=== PATIENT | female | born 1970 | race Caucasian/White ===

== ENCOUNTER 2023-11-01 11:11 | Inpatient (IN) | payer OTHER, SELFPAY ==
[2023-11-01] VITALS (12 sets, daily range): BP systolic 99–138; BP diastolic 73–94; BMI 32.1; BMI 30.6
--- NOTE | 2023-11-01 05:38 | ED.GENMED ---
History of Present Illness
<DO Dudley Hoyt Last Filed: 11/04/23 13:19>
General
Chief Complaint: Extremity Pain (non-traumatic)
Source: patient
Time Seen by Provider: 11/01/23 05:26
Travel History
Have you had any contact with someone who has COVID-19?: No
Do you have any symptoms of coronavirus? Fever > 100 degrees, chills, cough, shortness of breath, sore throat, loss of taste or smell, muscle aches, or headache?: No
History of Present Illness
History of Present Illness:
52-year-old female presents to the emergency room complaining of pain in her right calf. This pain began about 4 days ago. It was initially mild but has become more severe. This evening the pain was preventing her from sleeping because it was a
significant throbbing. In addition the patient noticed some shortness of breath with exertion yesterday. Today she becomes significantly short of breath with minimal exertion. Patient has a history of factor V Leiden deficiency. She has had a
DVT with PEs in the past. At that time she took anticoagulation for 6 months and then stopped. She does not currently take any form of anticoagulation.
Past History
<Jose Enrique Larsen DO - Last Filed: 11/04/23 13:19>
Past History
ED Past Medical History: None
ED Past Surgical History: None
Phy Exam
<Jose Enrique Larsen DO - Last Filed: 11/04/23 13:19>
Physical Exam
Physical Exam:
General: Awake, Alert, Oriented X3. Comfortable at rest but after standing up to change into a gown she was significantly dyspneic
Vitals: Tachycardic
Head: Atraumatic
Eyes: Pupils equal, EOMI
Throat: Airway intact, no exudates
Neck: Trachea midline
Lungs: Clear and equal b/l
Heart: Regular rate, no murmurs
Abd: Soft, Nontender, No pulsatile mass
Neuro: Nonfocal
Skin: Warm, dry, no rash
Extremities: Swelling of right calf noted, pulses are intact, cap refill is intact
Course
<Jose Enrique Larsen, DO - Last Filed: 11/04/23 13:19>
Orders/Labs/Results
Orders:
Orders
11/01/23 05:29
EKG [Electrocardiogram (*1)] Urgent
Reason for Study: Shortness of Breath
EKG- Treatment ONCE
11/01/23 05:32
US Periph Venous LOWER Ext RT Urgent
Comment:
Reason For Exam: swelling, pain, hx of factor v
11/01/23 05:45
Complete Blood Count/With Diff Urgent
Comprehensive Metabolic Panel Urgent
PTT Urgent
Prothrombin Time Urgent
Troponin I Urgent
11/01/23 06:18
CT Chest Pe Study Urgent
Comment:
Reason For Exam: dvt, sob, tachycardic
11/01/23 06:[address] Non Medication Order As Directed
Physician Order: PTT 6 hours after initial start of Heparin infusion
Above order entered?: Yes
11/01/23 06:42
Heparin [id number] Units/250 ml 25,000 units in 250 ml .ROUTE .STK-MED
11/01/23 07:00
Flush (0.9% Sodium Chloride) [Flush (Nss)] See Dose Instructions IV PER PROTOCOL
Heparin 7,200 units IV NOW STA
Heparin 97629 Units/250 ml 25,000 units in 250 ml IV PER PROTOCOL
Weight to be used for heparin protocol in kilograms (kg):: 90.3
Protocol:: DVT/PE
PTT Goal Range to be used:: PTT 73 to 111 seconds
Order type:: Initial
INITIAL Infusion Dose (UNITS/KG/hr) & then follow protocol:: 18 units/kg/hr
Infusion Dose in UNITS/hr & then follow protocol (UNITS/hr):: 1,600
INFUSION RATE in mL/hr & then follow protocol (mL/hr):: 16
For DVT/PE algorithm, re-bolus for low PTT?: Yes
PTT less than or equal to 64 seconds:: Re-bolus 80 units/kg (max 10,000units). Increase by 400 units/hr
(+ 4mL/hr)
PTT 64.1 to 72.9 seconds:: Re-bolus 40 units/kg (max 5,000 units). Increase by 200 units/hr
(+ 2mL/hr)
PTT 73 to 111 seconds:: Target Range. No change in rate.
PTT 111.1 to 130.9 seconds:: Decrease rate by 200 units/hr (- 2 mL/hr)
PTT 131 to 199.9 seconds:: HOLD for 1 hr. Then decrease by 300 units/hr (- 3mL/hr)
PTT greater than or equal to 200 seconds:: HOLD for 2 hrs & Notify Provider. Then decrease by 400 units/hr
(- 4mL/hr)
Lab follow-up:: Each change, PTT q6h until 2 consecutive are therapeutic. Then
PTT daily.
11/01/23 07:03
Heparin 7,200 units IV PRN PRN
11/01/23 07:04
Heparin 3,600 units IV PRN PRN
11/01/23 07:34
HYDROmorphone [Dilaudid] 0.5 mg IV NOW STA
11/01/23 09:42
Admit/Transfer Patient As Directed
Co-Sign Provider:
Level of Care: Inpatient admission
Assign to:: IMU- Intermediate Care
Physician / Group: [facility]
Diagnosis: B/L PEs
Reason for Hospitalization: Occlusive thrombus involving the right popliteal and peroneal veins.
Expected length of stay greater than two midnights?: Yes
ELOS- Estimated Length of Stay in days: 3
I certify the patient meets the requirements for IP care: Yes
11/01/23 09:43
Code Status As Directed
Resuscitation Status: Full Code
11/01/23 Lunch
Regular
At Your Request: Full Participation
11/01/23 11:15
D-Dimer Urgent
NT-proBNP Urgent
11/01/23 12:47
PTT Urgent
11/01/23 12:50
Morphine Sulfate 2 mg IV Q4HPRN PRN
11/01/23 13:21
0.9% Sodium Chloride 1000 ml [Nss] 1,000 ml IV 75 mls/hr
Acetaminophen [Tylenol] 650 mg PO Q4HPRN PRN
Polyethylene Glycol Powder [Miralax] 17 grams PO DAILY
11/01/23 13:21
PULMONARY CONSULT Routine
Consulting Provider: Aleks Carrera
Was physician already notified: Yes
Reason for consult: acute PEs
Heparin Protocol- PTT Orders As Directed
PTT per Heparin protocol: -Obtain CBC and baseline PTT - if not already collected.
-Obtain PTT 6 hours from start of infusion. Then, every 6 hours until 2 consecutive
PTT's are therapeutic. Then, PTT Daily.
-With each rate change, obtain PTT every 6 hours until 2 consecutive PTT's are
therapeutic. Then, PTT Daily.
Activity As Directed
Activity Level: With Assistance
Bladder Scan As Directed
Follow Bladder Retention/Intermittent Cath Algorithm?: Yes
Frequency: Per Retention Algorithm
Comment: as per intermittent urinary catheter algorithm
Bladder Scan As Directed
Follow Bladder Retention/Intermittent Cath Algorithm?: Yes
PRN if no void in __ hours: 6
Frequency: Per Retention Algorithm
If Bladder Scan Result >: 400
then:: Straight cath
Intake/ Output As Directed
Frequency: Per unit guidelines
Notify MD As Directed
Notify physician if: PTT is greater than or equal to 200.
Straight Cath As Directed
Frequency: Per Retention Algorithm
Additional Instructions: as per intermittent urinary catheter algorithm
Straight Cath As Directed
Frequency: Per Retention Algorithm
Additional Instructions: straight cath as needed per acute urinary retention algorithm for 24 hrs
Additional Instructions: for bladder scan greater than 400 mL
Vital Signs As Directed
Frequency: Per unit guidelines
11/01/23 16:00
Valacyclovir HCl [Valtrex] 1,000 mg PO TID
11/01/23 22:00
Pramipexole [Mirapex] 0.75 mg PO HS
Abnormal Lab Results
11/01/23
05:45
Absolute Neuts (auto) 6.6 H 10^3/uL
(1.4-6.5)
Absolute Monos (auto) 0.7 H 10^3/uL
(0.1-0.6)
Lymphocytes % 18.9 L %
(20.5-51.1)
BUN 20 H mg/dl
(7-17)
Glucose 106 H mg/dl
(70-99)
11/01/23 05:45
11/01/23 05:45
Vital Signs
Initial and Last Documented VS:
Initial Vital Signs
Temp Pulse Resp Pulse Ox
98.3 F 124 24 95
11/01/23 05:18 11/01/23 05:18 11/01/23 05:18 11/01/23 05:18
Last Documented Vital Signs
Temp Pulse Resp BP Pulse Ox
97.7 F 102 23 132/94 93
11/04/23 11:25 11/04/23 12:00 11/04/23 12:00 11/04/23 12:00 11/04/23 12:00
<Poncho Clifton, DO - Last Filed: 11/01/23 15:14>
Orders/Labs/Results
Orders:
Orders
11/01/23 05:29
EKG [Electrocardiogram (*1)] Urgent
Reason for Study: Shortness of Breath
EKG- Treatment ONCE
11/01/23 05:32
US Periph Venous LOWER Ext RT Urgent
Comment:
Reason For Exam: swelling, pain, hx of factor v
11/01/23 05:45
Complete Blood Count/With Diff Urgent
Comprehensive Metabolic Panel Urgent
PTT Urgent
Prothrombin Time Urgent
Troponin I Urgent
11/01/23 06:18
CT Chest Pe Study Urgent
Comment:
Reason For Exam: dvt, sob, tachycardic
11/01/23 06:[address] Non Medication Order As Directed
Physician Order: PTT 6 hours after initial start of Heparin infusion
Above order entered?: Yes
11/01/23 06:42
Heparin [id number] Units/250 ml 25,000 units in 250 ml .ROUTE .STK-MED
11/01/23 07:00
Flush (0.9% Sodium Chloride) [Flush (Nss)] See Dose Instructions IV PER PROTOCOL
Heparin 7,200 units IV NOW STA
Heparin [id number] Units/250 ml 25,000 units in 250 ml IV PER PROTOCOL
Weight to be used for heparin protocol in kilograms (kg):: 90.3
Protocol:: DVT/PE
PTT Goal Range to be used:: PTT 73 to 111 seconds
Order type:: Initial
INITIAL Infusion Dose (UNITS/KG/hr) & then follow protocol:: 18 units/kg/hr
Infusion Dose in UNITS/hr & then follow protocol (UNITS/hr):: 1,600
INFUSION RATE in mL/hr & then follow protocol (mL/hr):: 16
For DVT/PE algorithm, re-bolus for low PTT?: Yes
PTT less than or equal to 64 seconds:: Re-bolus 80 units/kg (max 10,000units). Increase by 400 units/hr
(+ 4mL/hr)
PTT 64.1 to 72.9 seconds:: Re-bolus 40 units/kg (max 5,000 units). Increase by 200 units/hr
(+ 2mL/hr)
PTT 73 to 111 seconds:: Target Range. No change in rate.
PTT 111.1 to 130.9 seconds:: Decrease rate by 200 units/hr (- 2 mL/hr)
PTT 131 to 199.9 seconds:: HOLD for 1 hr. Then decrease by 300 units/hr (- 3mL/hr)
PTT greater than or equal to 200 seconds:: HOLD for 2 hrs & Notify Provider. Then decrease by 400 units/hr
(- 4mL/hr)
Lab follow-up:: Each change, PTT q6h until 2 consecutive are therapeutic. Then
PTT daily.
11/01/23 07:03
Heparin 7,200 units IV PRN PRN
11/01/23 07:04
Heparin 3,600 units IV PRN PRN
11/01/23 07:34
HYDROmorphone [Dilaudid] 0.5 mg IV NOW STA
11/01/23 09:42
Admit/Transfer Patient As Directed
Co-Sign Provider:
Level of Care: Inpatient admission
Assign to:: IMU- Intermediate Care
Physician / Group: [facility]
Diagnosis: B/L PEs
Reason for Hospitalization: Occlusive thrombus involving the right popliteal and peroneal veins.
Expected length of stay greater than two midnights?: Yes
ELOS- Estimated Length of Stay in days: 3
I certify the patient meets the requirements for IP care: Yes
11/01/23 09:43
Code Status As Directed
Resuscitation Status: Full Code
11/01/23 Lunch
Regular
At Your Request: Full Participation
11/01/23 11:15
D-Dimer Urgent
NT-proBNP Urgent
11/01/23 12:47
PTT Urgent
11/01/23 12:50
Morphine Sulfate 2 mg IV Q4HPRN PRN
11/01/23 13:21
0.9% Sodium Chloride 1000 ml [Nss] 1,000 ml IV 75 mls/hr
Acetaminophen [Tylenol] 650 mg PO Q4HPRN PRN
Polyethylene Glycol Powder [Miralax] 17 grams PO DAILY
11/01/23 13:21
PULMONARY CONSULT Routine
Consulting Provider: Aleks Carrera
Was physician already notified: Yes
Reason for consult: acute PEs
Heparin Protocol- PTT Orders As Directed
PTT per Heparin protocol: -Obtain CBC and baseline PTT - if not already collected.
-Obtain PTT 6 hours from start of infusion. Then, every 6 hours until 2 consecutive
PTT's are therapeutic. Then, PTT Daily.
-With each rate change, obtain PTT every 6 hours until 2 consecutive PTT's are
therapeutic. Then, PTT Daily.
Activity As Directed
Activity Level: With Assistance
Bladder Scan As Directed
Follow Bladder Retention/Intermittent Cath Algorithm?: Yes
Frequency: Per Retention Algorithm
Comment: as per intermittent urinary catheter algorithm
Bladder Scan As Directed
Follow Bladder Retention/Intermittent Cath Algorithm?: Yes
PRN if no void in __ hours: 6
Frequency: Per Retention Algorithm
If Bladder Scan Result >: 400
then:: Straight cath
Intake/ Output As Directed
Frequency: Per unit guidelines
Notify MD As Directed
Notify physician if: PTT is greater than or equal to 200.
Straight Cath As Directed
Frequency: Per Retention Algorithm
Additional Instructions: as per intermittent urinary catheter algorithm
Straight Cath As Directed
Frequency: Per Retention Algorithm
Additional Instructions: straight cath as needed per acute urinary retention algorithm for 24 hrs
Additional Instructions: for bladder scan greater than 400 mL
Vital Signs As Directed
Frequency: Per unit guidelines
11/01/23 16:00
Valacyclovir HCl [Valtrex] 1,000 mg PO TID
11/01/23 22:00
Pramipexole [Mirapex] 0.75 mg PO HS
Abnormal Lab Results
11/01/23
05:45
Absolute Neuts (auto) 6.6 H 10^3/uL
(1.4-6.5)
Absolute Monos (auto) 0.7 H 10^3/uL
(0.1-0.6)
Lymphocytes % 18.9 L %
(20.5-51.1)
BUN 20 H mg/dl
(7-17)
Glucose 106 H mg/dl
(70-99)
11/01/23 05:45
11/01/23 05:45
Vital Signs
Initial and Last Documented VS:
Initial Vital Signs
Temp Pulse Resp Pulse Ox
98.3 F 124 24 95
11/01/23 05:18 11/01/23 05:18 11/01/23 05:18 11/01/23 05:18
Last Documented Vital Signs
Temp Pulse Resp BP Pulse Ox
97.7 F 102 23 132/94 93
11/04/23 11:25 11/04/23 12:00 11/04/23 12:00 11/04/23 12:00 11/04/23 12:00
<Jose Enrique John Larsen DO - Last Filed: 11/04/23 13:19>
MDM/Problems Addressed
Differential Diagnosis Includes:
DVT, PE, anemia
MDM/Problems Addressed:
Patient presents with signs and symptoms suggestive of both pulmonary embolism and DVT. Patient has history of a hypercoagulable state. She is not taking anticoagulants at this time. Ultrasound of the right leg shows clot in the popliteal vein
through the peroneal vein. Given the patient's tachycardia and shortness of breath with minimal exertion will obtain a PE study. I am starting heparin in the meantime. Should the PE study be negative we can always discontinue and discharge her on
Eliquis. However my suspicion for PE is high
<Jose Enrique Larsen DO - Last Filed: 11/04/23 13:19>
*Radiology
Radiology exam reviewed: radiology read reviewed
*Pulse Oximetry
Patient hypoxic: no
*EKG
Interpreted by ED Provider?: Yes
Interpretation: abnormal
Heart Rate: 107
Rate: tachycardiac
Rhythm: sinus tachycardia
Interval: normal interval
QRS Pattern: normal QRS
Ischemia: no ischemia
*[employer] Manager Interpretation
Rate: tachycardiac
Interpretation: abnormal
Heart Rate: 107
Rhythm: sinus tachycardia
*Critical Care Note
Total Time (30-74mins, 75-104mins- exclusive of procedures): 35 min
<Poncho Clifton, DO - Last Filed: 11/01/23 15:14>
Update Note
Update Note:
Patient received in signout. On my review of CT it appears that pulmonary emboli. Heparin already ordered. Admit. Await official radiology read
ED Attending Note
<Jose Enrique Larsen DO - Last Filed: 11/04/23 13:19>
-
Portions of this chart may have been created with voice recognition software.� Occasional wrong word or��sound alike� substitutions may have occurred due to the inherent limitations of voice recognition software.
Discharge Plan
Departure
Patient Disposition: Admit
Date of Disposition: 11/01/23
Time of Disposition: 07:12
Admit to: Telemetry
Presentation/result/management discussed w/ accepting MD/DO: Hospitalist
Discharge Problem:
Pulmonary embolism, DVT (deep venous thrombosis)
Interventions
Interventions:
*Risk Screen - Suicide Last Done: 11/01/23 13:43
*General Assessment Last Done: 11/01/23 05:18
*Neglect/Abuse Screening Last Done: 11/01/23 05:18
ED- Fall Risk Assessment Last Done: 11/01/23 13:24
*ED COVID-19 Vaccine History Last Done: 11/01/23 13:43
*Nursing Disposition Last Done: 11/01/23 13:24
ED-Skin Assessment Last Done: 11/01/23 05:57
ED-Peripheral Vascular Assessment Last Done: 11/01/23 06:45
ED- Pulmonary Assessment Last Done: 11/01/23 05:57
ED-Musculoskeletal Assessment Last Done: 11/01/23 05:57
ED- Cardiac Assessment Last Done: 11/01/23 05:57
Discharge Date and Time
Discharge Date/Time: 11/01/23 13:25
[2023-11-01 05:57] LABS: % Basophils 0.6 % (0-2); % Eosinophils 1.1 % (0-6); % Immature Granulocytes 0.3 % (0-0.5); % Lymphocytes 18.9 % (20.5-51.1); % Monocytes 7.7 % (1.7-9.3); % Neutrophils 71.4 % (42.2-75.2); Absolute Basophils 0.1 10^3/uL (0-0.2); Absolute Eosinophils 0.1 10^3/uL (0-0.7); Absolute Lymphocytes 1.8 10^3/uL (1.2-3.4); Absolute Monocytes 0.7 10^3/uL (0.1-0.6); Absolute Neutrophils 6.6 10^3/uL (1.4-6.5); Hematocrit 41.6 % (37.0-47.0); Hemoglobin 14.9 g/dL (12.0-16.0); Mean Corp Hgb Conc. 35.8 g/dL (33.0-37.0); Mean Corpuscular Volume 86.5 fL (81.0-99.0); Mean Platelet Volume 9.9 fL (7.4-10.4); Nucleated Red Blood Cells % 0 %; Platelet Count 167 10^3/uL (130-400); Red Blood Cell Count 4.81 10^6/uL (4.20-5.40); Red Cell Dist. Width 12.7 % (11.5-14.5); White Blood Cell Count 9.3 10^3/uL (4.8-10.8)
[2023-11-01 06:07] LABS: ALT (SGPT) 22 U/L (0-35); AST (SGOT) 26 U/L (14-36); Albumin 4.1 g/dl (3.5-5.0); Alkaline Phosphatase 99 U/L (38-126); Blood Urea Nitrogen 20 mg/dl (7-17); Calcium 9.7 mg/dl (8.4-10.2); Carbon Dioxide 22 mmol/L (22-30); Chloride 103 mmol/L (98-107); Glucose 106 mg/dl (70-99); Sodium 136 mmol/L (135-145); Total Bilirubin 0.8 mg/dl (0.2-1.3); Total Protein 6.9 g/dl (6.3-8.2); eGFR > 60.00
[2023-11-01 06:17] LABS: PT 14.1 Sec (11.4-14.6)
[2023-11-01 06:18] LABS: APTT 30.1 Sec (23.4-35.0); Troponin I < 0.012 ng/ml
[2023-11-01] MEDS: HEPARIN 7200 UNITS IV (07:01)
[2023-11-01] MEDS: HEPARIN 25000 UNITS/250 ML IV (07:02)
[2023-11-01] MEDS: DILAUDID 0.5 MG IV ×4 (08:18→23:35)
--- NOTE | 2023-11-01 09:41 | HPS.HSE ---
Family Physician
-
Family Physician: Abigail Montes De Oca
Chief Complaint
-
Right lower extremity pain
History of Present Illness
52-year-old female with past medical history of factor V Leiden mutation with history of pulmonary embolism in the past (and was taken off anticoagulation) presents with a chief complaint of right lower extremity pain. This started approximately 4
days ago. It became severely worse yesterday and this morning. Yesterday the patient developed shortness of breath which persisted into today. Over the last roughly 1 week she has felt more fatigued. About a week and a half ago the patient saw
her primary care physician for left-sided head pain and was diagnosed with 'shingles without a rash' and was placed on Valtrex. Those symptoms have improved. She denies any syncope, palpitations, nausea, vomiting, diarrhea, chest pain, rash,
dysuria, focal neurological deficits.
Medical History
Past Medical History
Past Medical History: Reports Other (as per HPI)
Past Surgical History: Reports Other (N/A)
Social History
Tobacco: Smoker
Alcohol: None
Drug: None
Family History
Family History: Not pertinent
Allergies / Home Medications
Allergies reflects when Allergies were last updated in [employer].
Home Medications with original date entered in [employer]
Allergy/Medication List:
Allergies
Allergy/AdvReac Type Severity Reaction Status Date / Time
pineapple Allergy Swelling Verified 01/09/23 09:53
NSAIDS (Non-Steroidal AdvReac Told not Verified 01/09/23 09:53
Anti-Inflamma to take
because of
stomach
ulcers and
Factor 5
Leid
Home Medications
diphenhydramine 25 mg-acetaminophen 500 mg tablet (Tylenol PM Extra Strength) 2 tab PO HS 11/01/23
melatonin 10 mg tablet 10 mg PO HS 11/01/23
pramipexole 0.75 mg tablet 0.75 mg PO HS 11/01/23
valacyclovir 1 gram tablet (Valtrex) 1,000 mg PO TID 11/01/23
Review of Systems
-
History Source: Patient
A 12 point ROS was completed and negative except as noted: Yes
Physical Exam
Vital Signs
Vital Signs
Temp Pulse Resp BP Pulse Ox
98.3 F 100 17 120/85 96
11/01/23 05:18 11/01/23 07:00 11/01/23 07:00 11/01/23 07:00 11/01/23 07:00
Physical Exam
General: Other (.)
Laboratory Results
-
11/01/23 05:45
11/01/23 05:45
Laboratory Results
PT 14.1 Sec (11.4-14.6) 11/01/23 05:45
INR 1.10 11/01/23 05:45
APTT 30.1 Sec (23.4-35.0) 11/01/23 05:45
Total Bilirubin 0.8 mg/dl (0.2-1.3) 11/01/23 05:45
AST 26 U/L (14-36) 11/01/23 05:45
ALT 22 U/L (0-35) 11/01/23 05:45
Alkaline Phosphatase 99 U/L (38-126) 11/01/23 05:45
Troponin I < 0.012 ng/ml 11/01/23 05:45
Impression/Plan
-
Gen: NAD, AAOx3.
Eyes: EOMI, PERRLA, no scleral icterus.
Neck: supple.
CV: RRR, +S1/S2, no m/r/g.
Resp: CTAB, no rales, wheezes, or rhonchi.
Abd: +BS, soft, NT, ND
Skin: No rashes.
Neuro: CN 2-12 intact, non-focal.
Psych: Normal mood and affect.
CTA chest: Examination is positive for pulmonary embolism.
There is saddle embolus in the posterior aspect of the bifurcation of the main pulmonary artery, with emboli extending into the main pulmonary arteries bilaterally.
On the right, there is involvement of the proximal aspect of the right upper lobe pulmonary artery. There is also involvement of the superior aspect of the proximal interlobar right pulmonary artery. There does not appear to be significant emboli
within the visualized right middle and lower lobe pulmonary arteries.
On the left, there is involvement of the left upper lobe pulmonary artery and extending into segmental branches. There is also involvement of the lingula and of the left lower lobe segmental branches, although appears to relatively spare the
subsegmental branches inferiorly.
There are no findings to suggest significant right heart strain with no significant deviation of the interventricular septum. The RV/LV ratio is less than 1.
RLE U/S: Occlusive thrombus involving the right popliteal and peroneal veins.
Acute saddle and B/L PEs, acute RLE U/S:
-Patient with factor V Leiden mutation. History of pulmonary embolism in the past but was taken off anticoagulation.
-no evidence of RV strain, troponin negative, patient hemodynamically stable
-Check echocardiogram
-IVFs
-Consult pulmonary
-Continue heparin drip started in the ER
Obesity due to excess calories:
-Encourage weight loss
-Affects all aspects of care
FULL/Heparin gtt
[2023-11-01 11:41] LABS: D-Dimer 1.22 ug/mlFEU (0.00-0.50)
[2023-11-01 11:50] LABS: NT-proBNP < 20.0 pg/ml
[2023-11-01] MEDS: MORPHINE SULFATE 2 MG IV (12:59)
--- NOTE | 2023-11-01 13:50 | CON.PUL ---
Consultation
Consultation Request
Date/Time Consultation Requested: 11-01-23
Date/Time Consultation Performed: 11-01-23
Requesting Provider: Hospitalist
Performing Provider: Dr Carrera
Reason for Consultation: PE/DVT
Medical History
-
Chief Complaint: dyspnea
History of Present Illness:
Mrs Juany Rosales is a 52/W adm 10-31 with reported history of right lower extremity pain and dyspnea since day prior to admission. Both symptoms worsened over time.
Reportedly, she visited PCP for left-sided headache, she was empirically started on Valtrex with improvement of symptoms.
Of note, she has a history of factor V Leiden mutation and history of associated pulmonary embolism for which she was on anticoagulation in the past. First adm
FVL mutation diagnosed in screening test at age mid 30s after her paternal aunt had DVT and proved positive for FVLD
H/o PE for which she was on anticoagulation for 6 m in 2019 (no DVT)
2 cousins with FVL mutation
Smoker: 1 ppd since age 16
Denies precordial or pleuritic CP, no presyncopal event
Past Medical History
Past Medical History: Other (see AP for PMH and PSH)
Social History
Tobacco: Smoker
Alcohol: None
Drug: None
Personal:
Living: With Family
Employment: Employed
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
Family History
Family History: Other (FVL mutation in paternal aunt and two cousins)
Allergies / Home Medications
Allergies
Allergy/AdvReac Type Severity Reaction Status Date / Time
pineapple Allergy Swelling Verified 01/09/23 09:53
NSAIDS (Non-Steroidal AdvReac Told not Verified 01/09/23 09:53
Anti-Inflamma to take
because of
stomach
ulcers and
Factor 5
Leid
Home Medications
�Medication �Instructions �Recorded �Confirmed �Last Taken �Type
diphenhydramine 25 2 tab PO HS 11/01/23 11/01/23 10/31/23 History
mg-acetaminophen 500 mg tablet
(Tylenol PM Extra Strength)
melatonin 10 mg tablet 10 mg PO HS 11/01/23 11/01/23 10/31/23 History
pramipexole 0.75 mg tablet 0.75 mg PO HS 11/01/23 11/01/23 10/31/23 History
valacyclovir 1 gram tablet 1,000 mg PO TID 11/01/23 11/01/23 10/31/23 History
(Valtrex)
Review of Systems
-
History Source: Patient
All other systems: Negative unless noted
Constitutional: Fatigue
Respiratory: Trouble Breathing
Musculoskeletal: Other (RLE pain)
Vitals / Labs / Diagnostic Testing
Vital Signs
Temp Pulse Resp BP Pulse Ox
98.7 F 115 24 99/74 95
11/01/23 13:30 11/01/23 13:03 11/01/23 13:03 11/01/23 13:03 11/01/23 12:15
Lab Data
11/01/23 05:45
11/01/23 05:45
Laboratory Results
11/01/23
05:45
PT 14.1
INR 1.10
APTT 30.1
Diagnostic Testing:
Physical Exam
-
HEENT: Normocephalic, Moist Mucous Membranes and Thrush (n)
Cardiovascular: Regular Rhythm, Murmur (n), Peripheral Edema (n), Calf Tenderness (n) and JVD (n)
Respiratory: Clear and Non-Labored Respirations
GI: Soft, Non Distended and Non Tender
Neurology: Awake, AO x 3 and No Motor Deficits
Skin: Warm
General: Respiratory Distress (n)
Assessment
-
Assessment:
Mrs Juany Rosales is a 52/W adm 10-31 with reported history of right lower extremity pain and dyspnea since day prior to admission. Both symptoms worse over time. Reportedly, she visited PCP for left-sided headache, she was empirically started
on Valtrex with improvement of symptoms. Of note, she has a history of factor V Leiden mutation and history of associated pulmonary embolism for which she was on anticoagulation in the past. First adm
Impression:
VTE:
Saddle PE
RLE calf DVT
Thrombophilia: FVL mutation
Tobacco dependence
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
Factor V Leiden mutation
FVL mutation diagnosed in screening test at age mid 30s after her paternal aunt had DVT and proved positive for FVLD
H/o PE for which she was on anticoagulation for 6 m in 2019 (no DVT)
2 cousins with FVL mutation
Smoker: 1 ppd since age 16
Obesity
Plan:
O2 protocol as needed
Evaluate O2 needs PTD
Acapella valve
Aspiration precautions
CTA chest: saddle and bilateral PE. GGO at RUL anterior(*). Posterior dependent changes
TTE: pending
RLE doppler US: R pop and peroneal DVT
Check LLE doppler for completeness, ordered
BNP low
D-dimer ^
Trop negative
EKG ST
(*)Check COVID test
Full PESI: class II, low risk, 1.7 to 3.5% thirty d mortality
Heparin drip
Benefits and risks of thrombolytics therapy were reviewed with patient
Patient has mild tachycardia and borderline interim hypotension-currently risks of aggressive thrombolytic therapy outweigh [id number] notified of options, reasons for conservative standard of care therapy and is in agreement
Will transition to DOAC in 24 hrs if stable
Bedrest �24 hours
Given second VTE event, will need half-way AC
Used to follow with Hem and Pulm at [facility] and post d/c after first PE event in 2019 (ASUNCION doppler negative for DVT), repeat CTA negative at 6 m gavin, apixaban AC then d/c
Agrees to pulm and local hematology follow up p d/c. BCMA information left in chart
Never colonoscopy but negative cologuard 1 y ago
Negative mammogram mid 2022
Negative PAP 2 y ago
No wt loss, but chronic intermittent NS
Tobacco dependence and Smoking Cessation Counselling provided on 10-31: No current tobacco craving but realizes may eventually feel urge for tobacco as has happened before.
-Motivational interview to address importance of tobacco cessation, building up motivation to quit.
-Diagnosis of tobacco dependence, etiology, natural history and pathophysiology discussed in detail, all questions answered to satisfaction.
-Therapeutic options discussed, benefits and potential side effects of standard regimens discussed, all questions answered to satisfaction.
-NRT to complete total of 3-6 m of therapy. Agrees to start nicotine patch, will start at 21 mg qd for 1-2 m, then 14 mg qd for 1-2 m, then 7 mg qd for 1-2 m and stop (dosing and course to be modified based on response).
-Behavioral interventions in addition to NRT were thoroughly discussed.
-Total smoking cessation counsellin min.
DVT prophylaxis-on full anticoagulation
Early nutrition
Early mobilization
Outpatient pulmonary follow-up
Outpatient appropriate malignancy screening
[2023-11-01 14:02] LABS: APTT > 200 Sec (23.4-35.0)
[2023-11-01] MEDS: MIRALAX PO (14:29)
[2023-11-01] MEDS: NSS 1000 IV (14:30)
[2023-11-01] MEDS: VALTREX 1000 MG PO ×2 (16:49→21:17)
--- NOTE | 2023-11-01 17:33 | PTCARENOTE ---
Arrived to floor from ED on stretcher. Pt ambulated to bed; Pt very HIGUERA with ambulation. Pt reports RLE pain ~ 7/10; SpO2 = 93% on RA; Sinus Tach on monitor with rate ~ 90-110's. Heparin infusing into RAC ~ 16ml/hr; NSS started @ 75/hr.
Oriented to room, call maldonado within reach. Will continue to monitor and assess.
--- NOTE | 2023-11-01 19:45 | PTCARENOTE ---
Pt received from previous RN. Pt AAO, agreeable to care. Pt OOB to bathroom with standby assist. Pt voided moderate amount of clear urine. Pt with dyspnea and tachypnea with ambulation, RR rate 22. Pt resting in bed now, RR rate 15, even and un
labored, satting 93%. lungs coarse at the bases. Pt receiving heparin at 1200 u/hr, 12.0 ml/hr. per protocol. next PTT at 22:00. Please see nursing shift assessment for full head to toe.
--- NOTE | 2023-11-01 20:12 | PTCARENOTE ---
Pt c/o 02/22 right leg pain. care team aware of pain per dayshift RN. This RN administered ordered 0.5mg Q3 PRN Dilaudid for pain. Pt admits to relief of pain after administration, pain 10/22. RR even and unlabored, chest rise and fall noted.
[2023-11-01] MEDS: MIRAPEX 0.75 MG PO (21:17)
[2023-11-01 22:27] LABS: APTT 68.1 Sec (23.4-35.0)
[2023-11-01] MEDS: HEPARIN IV (22:55)
[2023-11-01] MEDS: HEPARIN 3600 UNITS IV (23:16)
[2023-11-02] VITALS (12 sets, daily range): BP systolic 95–130; BP diastolic 69–88; BMI 31.2
[2023-11-02] MEDS: DILAUDID 0.5 MG IV ×5 (03:25→21:08)
[2023-11-02] MEDS: NSS 1000 IV ×2 (03:30→16:39)
--- NOTE | 2023-11-02 03:30 | PTCARENOTE ---
Pt stood and pivoted to bedside commode. Per activity level order, Pt ambulated with assistance. Pt experienced SOB and dyspnea post ambulation, Pt satting 88%. This SOB lasted a few minutes, Pt was able to recover back up to 90%. Per medical
consultation note, which states '02 per protocol' Pt was placed on 2L NC. Pts O2 Sat increased to 94%, with assistance of 02.
[2023-11-02] MEDS: HEPARIN 25000 UNITS/250 ML IV (04:14)
[2023-11-02] MEDS: TYLENOL 650 MG PO ×2 (06:03→23:09)
[2023-11-02 06:20] LABS: COVID-19 Antigen Negative (Negative)
[2023-11-02 06:26] LABS: APTT 157.2 Sec (23.4-35.0)
--- NOTE | 2023-11-02 06:40 | PTCARENOTE ---
PTT 157.2. Heparin placed on hold for 1hr. Then to be restarted and decreased by 3ml/hr, 300u/hr. PTT placed for 6hr after restart, placed for 13:30. per medication titration protocol.
[2023-11-02] MEDS: VALTREX 1000 MG PO ×3 (08:18→21:10)
[2023-11-02] MEDS: NICODERM TRANSDERMAL 21 MG TRANSDERM (08:18)
[2023-11-02] MEDS: MIRALAX 17 GRAMS PO (08:18)
--- NOTE | 2023-11-02 10:01 | W.PN.HOSP.TC ---
Today's Communication/Plan
-
Continue IV heparin drip. Echocardiogram. Ultrasound lower extremities.
Assessment / Plan
Assessment / Plan
Physical exam:
General: Acutely ill
HEENT: Normocephalic, Atraumatic and Moist Mucous Membranes
Respiratory: Clear to Auscultation; Negative Wheezes, Rales or Rhonchi
Cardiac: Regular Rhythm and S1/S2
GI: Soft, Nontender and Nondistended
Musculoskeletal: No Clubbing, No Cyanosis and No Edema
Neuro: Awake, Alert and Oriented
Psych: Calm
Echocardiogram:
Normal biventricular size and systolic function without regional wall motion
abnormality. Estimated LVEF 55-60%.
Mild concentric left ventricular hypertrophy.
Normal PASP.
No prior study available for comparison.
A/P:
CTA chest: Examination is positive for pulmonary embolism.
There is saddle embolus in the posterior aspect of the bifurcation of the main pulmonary artery, with emboli extending into the main pulmonary arteries bilaterally.
On the right, there is involvement of the proximal aspect of the right upper lobe pulmonary artery. There is also involvement of the superior aspect of the proximal interlobar right pulmonary artery. There does not appear to be significant emboli
within the visualized right middle and lower lobe pulmonary arteries.
On the left, there is involvement of the left upper lobe pulmonary artery and extending into segmental branches. There is also involvement of the lingula and of the left lower lobe segmental branches, although appears to relatively spare the
subsegmental branches inferiorly.
There are no findings to suggest significant right heart strain with no significant deviation of the interventricular septum. The RV/LV ratio is less than 1.
RLE U/S: Occlusive thrombus involving the right popliteal and peroneal veins.
Acute saddle and B/L PEs, acute RLE U/S:
-Patient with factor V Leiden mutation. History of pulmonary embolism in the past but was taken off anticoagulation.
-no evidence of RV strain, troponin negative, patient hemodynamically stable
-Checked echocardiogram and results as above
-Ultrasound of the opposite leg and no DVT in the left
-IVFs
-Consult pulmonary appreciated
-Continue heparin drip
-Consult hematology given recurrence of events
-Continue cardiac monitoring
Obesity due to excess calories:
-Encourage weight loss
-Affects all aspects of care
FULL/Heparin gtt
Total time spent on today's encounter was 52 minutes which included time spent in counseling the patient/family regarding diagnosis and treatment plan as listed above, goals of care, and symptom management. Case was discussed with nursing staff,
specialists, and care coordinators/case management. All labs and imaging personally reviewed by me. Remainder the time spent in detailed review of previous records, lab data, imaging, and other medical provider documentation.
Anticipated Discharge: > 48 hours
Subjective/Interval History
-
Date of Service: November 02, 2023
Patient still having chest pains and shortness of breath especially upon exertion/activity. Afebrile
Objective Data
-
Labs:
Laboratory Results
11/01/23 11/02/23 11/02/23
22:06 05:51 13:30
APTT 68.1 H 157.2 H* Pending
Vital Signs:
Vital Signs
Temp Pulse Resp BP Pulse Ox
98.4 F 85 14 95/69 95
11/02/23 03:21 11/02/23 09:45 11/02/23 09:45 11/02/23 08:00 11/02/23 09:45
I&O
11/01/23 11/02/23 11/03/23
06:59 06:59 06:59
Intake Total 240 / 240 240 / 240
Balance 240 / 240 240 / 240
--- NOTE | 2023-11-02 10:14 | CM ---
CM following re: discharge planning.
Reviewed pt's chart, met with pt and pt's at bedside.
Pt is a 52 year old female, admitted with primary dx of Right lower extremity pain.
Pt reports she lives with in a 2SH, 1 step to enter, has 2 supportive children (biological and stepchild).
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 No DME, VN or SNF history.
PCP: Abigail [facility] De [facility]
Pharmacy: [facility].
D/C plan: home with anticipated no needs. Spouse to transport at discharge.
CM will follow with discharge plan updates as hospitalization progresses
--- NOTE | 2023-11-02 15:12 | W.PN.PUL3 ---
Today's Communication / Plan
-
AC with TRX to NOAC after 48 hrs of parenteral systemic AC
Case management consult to assess for affordability of NOAC, preferably Eliquis, if agreed upon by hematology
Walking pulse oximetry prior to discharge
Check transthoracic echo
Check left lower extremity duplex to rule out DVT
Outpatient follow-up with us in the office
Assessment
-
Assessment:
Mrs Juany Rosales is a 52/W adm 10-31 with reported history of right lower extremity pain and dyspnea since day prior to admission. Both symptoms worse over time. Reportedly, she visited PCP for left-sided headache, she was empirically started
on Valtrex with improvement of symptoms. Of note, she has a history of factor V Leiden mutation and history of associated pulmonary embolism for which she was on anticoagulation in the past. First adm
Impression:
VTE:
Saddle PE
RLE calf DVT
Thrombophilia: FVL mutation
Tobacco dependence
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
Factor V Leiden mutation
FVL mutation diagnosed in screening test at age mid 30s after her paternal aunt had DVT and proved positive for FVLD
H/o PE for which she was on anticoagulation for 6 m in 2019 (no DVT)
2 cousins with FVL mutation
Smoker: 1 ppd since age 16
Obesity
Plan:
O2 protocol as needed with goal SpO2 >90-94%
Evaluate O2 needs PTD with home O2 assessment
Acapella valve
Aspiration precautions
CTA chest: saddle and bilateral PE. GGO at RUL anterior(*). Posterior dependent changes
TTE: pending
RLE doppler US: R pop and peroneal DVT
Check LLE doppler for completeness, ordered
BNP low
D-dimer ^
Trop negative
EKG ST
COVID-19 antigen negative
Full PESI: class II, low risk, 1.7 to 3.5% thirty d mortality
Heparin drip with transition to NOAC after 48 hrs of heparin gtt
Benefits and risks of thrombolytics therapy were reviewed with patient
Patient has mild tachycardia and borderline interim hypotension-currently risks of aggressive thrombolytic therapy outweigh [id number] notified of options, reasons for conservative standard of care therapy and is in agreement
Bedrest �24 hours
Given second VTE event, will need jail AC
Used to follow with Hem and Pulm at [facility] and post d/c after first PE event in 2019 (ASUNCION doppler negative for DVT), repeat CTA negative at 6 m gavin, apixaban AC then d/c
Agrees to pulm and local hematology follow up p d/c. BCMA information left in chart
Hematology saw pt today --> follow up recs
Never colonoscopy but negative cologuard 1 y ago
Negative mammogram mid 2022
Negative PAP 2 y ago
No wt loss, but chronic intermittent NS
Tobacco dependence and Smoking Cessation Counselling provided on 10-31: No current tobacco craving but realizes may eventually feel urge for tobacco as has happened before.
-Motivational interview to address importance of tobacco cessation, building up motivation to quit.
-Diagnosis of tobacco dependence, etiology, natural history and pathophysiology discussed in detail, all questions answered to satisfaction.
-Therapeutic options discussed, benefits and potential side effects of standard regimens discussed, all questions answered to satisfaction.
-NRT to complete total of 3-6 m of therapy. Agrees to start nicotine patch, will start at 21 mg qd for 1-2 m, then 14 mg qd for 1-2 m, then 7 mg qd for 1-2 m and stop (dosing and course to be modified based on response).
-Behavioral interventions in addition to NRT were thoroughly discussed.
-Total smoking cessation counsellin min.
DVT prophylaxis-on full anticoagulation
Early nutrition
Early mobilization
Encourage incentive spirometer
Outpatient pulmonary follow-up
Outpatient appropriate malignancy screening
Pulmonary will continue to follow along while she remains inpatient. I will arrange for outpatient follow-up s/p discharge.
Total time spent today was 35 minutes for this encounter. Time includes reviewing laboratory test/imaging results, reviewing pertinent medical records, obtaining and reviewing medical history, performing an appropriate exam, ordering medications,
tests and procedures. Time also includes documentation of this encounter, coordinating patient care and communicating with other healthcare professionals. Total time does not include separately billed tests performed on this date of service.
Subjective Data
-
Date of Service:
Date of Service: November 02, 2023
Chief Complaint: Pulmonary Follow Up and VTE Follow Up
Subjective:
Patient seen and evaluated today at bedside. She was resting in bed, saturating 92% on room air breathing comfortably. Heart rate 108 and BP 122/88. She currently denies chest pain, headache, abdominal pain, fevers or chills.
Review of Systems
General: Other (Negative unless mentioned above)
Objective Data
Data Reviewed
Vital Signs / I&O / Oxygen:
Vital Signs
Temp Pulse Resp BP Pulse Ox
98.0 F 85 14 95/69 95
11/02/23 11:50 11/02/23 09:45 11/02/23 09:45 11/02/23 08:00 11/02/23 09:58
Intake and Output
11/01/23 11/02/23 11/03/23
06:59 06:59 06:59
Intake Total 240 / 240 240 / 240
Balance 240 / 240 240 / 240
SaO2 95
Nasal Cannula flow liters per 2
minute
Physical Exam
General: Respiratory Distress (negative) and Comfortable
HEENT: Normocephalic and Anicteric
Cardiovascular: S1-S2 and Peripheral Edema (Trace RLE; no edema on left lower extremity)
Respiratory: Wheeze (negative), Crackles (bibasilar), Rhonchi (negative) and Non-Labored Respirations
GI: Soft, Non Distended and Non Tender
Neurology: AO x 3
Skin: Warm, Dry and Cyanosis (n)
Labs/Micro/Reports
Laboratory Results
11/01/23 11/02/23
22:06 05:51
APTT 68.1 H 157.2 H*
[2023-11-02 15:44] LABS: Hematocrit 39.5 % (37.0-47.0); Mean Corp Hgb Conc. 32.9 g/dL (33.0-37.0); Mean Corpuscular Hgb 30.7 pg (27.0-31.0); Mean Corpuscular Volume 93.2 fL (81.0-99.0); Platelet Count 146 10^3/uL (130-400); Red Blood Cell Count 4.24 10^6/uL (4.20-5.40); Red Cell Dist. Width 12.9 % (11.5-14.5); White Blood Cell Count 5.7 10^3/uL (4.8-10.8)
[2023-11-02 15:55] LABS: APTT 47.4 Sec (23.4-35.0)
[2023-11-02 16:01] LABS: Blood Urea Nitrogen 14 mg/dl (7-17); Calcium 8.8 mg/dl (8.4-10.2); Carbon Dioxide 24 mmol/L (22-30); Chloride 106 mmol/L (98-107); Estimated Creatinine Clearance 106 ml/min; Glucose 84 mg/dl (70-99); Potassium 4.7 mmol/L (3.5-5.1); Sodium 135 mmol/L (135-145); eGFR > 60.00
[2023-11-02] MEDS: HEPARIN 7200 UNITS IV (16:56)
[2023-11-02] MEDS: MIRAPEX 0.75 MG PO (21:10)
--- NOTE | 2023-11-02 21:55 | CON.ONC ---
Impression
Impression
Hx PE provoked by OCP's + tobacco use
Now with unprovoked DVT/PE
Tobacco use disorder, still smoking
Hx PUD
Plan
Plan
Continue heparin gtt
When medically stable for d/c from ICU, may transition to Eliquis 10 BID x 7 days followed by 5 BID x 6 months.
Needs life-long anticoagulation but anticipate transitioning to 2.5 BID after 6 months course.
Monitor hemoglobin and iron studies Q6m as outpt due to history of PUD.
Needs mammogram, Provider Relations Specialist follow up.
Low threshold for colonoscopy if iron deficiency develops, otherwise may continue Cologard screening.
Thank you for consult, will follow along with you.
Patient History
History of Present Illness
52 yo woman, previously a pt of Dr. Agnes Rawls. Pt was tested for FVL in 2012 because her aunt had a DVT and was found to have FVL. She tested positive but did well until 08/2018 when she developed PE without DVT in the context of smoking +
OCP's. She was treated with 6 months' full-dose Eliquis. Anticoagulation was then D/C'd as she was felt to have had a provoked event. She presented 10/31 with a chief complaint of right lower extremity pain. This started approximately 4 days
prior to ED visit. Pain progressed, followed by shortness of breath which persisted into day of ED presentation. About a week and a half ago the patient saw her primary care physician for left-sided head pain and was diagnosed with 'shingles
without a rash' and was placed on Valtrex. Those symptoms have improved. She denies any syncope, palpitations, nausea, vomiting, diarrhea, chest pain, rash, dysuria, focal neurological deficits. Regarding routine health maintenance, she states
she underwent Cologard last summer. States overdue for Provider Relations Specialist care. Last mammogram about 18 months ago. Denies unintentional weight loss, loss of appetite. She is now on heparin gtt.
Past-Medical/Surgical History
PMHx:
Depression
Restless leg syndrome
DVT/PE
Stomach ulcers [id number]
PSHx:
Thyroid mass excision (goiter)
Appendectomy
[facility] 2017 for endometriosis, ovaries left in place
Soc:
Still smoking
, lives with and child
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
Fam:
Mother had bladder cancer
Maternal grandfather had lung cancer
Patient Medication
�Medication �Instructions �Recorded �Confirmed �Last Taken �Type
diphenhydramine 25 2 tab PO HS Sleep 11/01/23 11/01/23 10/31/23 History
mg-acetaminophen 500 mg tablet
(Tylenol PM Extra Strength)
melatonin 10 mg tablet 10 mg PO HS Sleep 11/01/23 11/01/23 10/31/23 History
pramipexole 0.75 mg tablet 0.75 mg PO HS RESTLESS LEG 11/01/23 11/01/23 10/31/23 History
valacyclovir 1 gram tablet 1,000 mg PO TID Infection 11/01/23 11/01/23 10/31/23 History
(Valtrex)
Active Medications
Generic Name Dose Route Start Last Admin
Trade Name Freq PRN Reason Stop Dose Admin
Acetaminophen 650 mg 11/01/23 13:21 11/02/23 06:03
Acetaminophen 325 Mg Tablet PO 11/29/23 13:20 650 mg
Q4HPRN PRN Administration
mild pain/temp > 100.4 F
Heparin Sodium 7,200 units 11/01/23 07:03 11/02/23 16:56
Heparin 80 Units/Kg Rebolus-Do Not Discard IV 11/29/23 07:02 7,200 units
PRN PRN Administration
PTT < OR = 64 seconds
Heparin Sodium 3,600 units 11/01/23 07:04 11/01/23 23:16
Heparin 40 Units/Kg Rebolus-Do Not Discard IV 11/29/23 07:03 3,600 units
PRN PRN Administration
PTT = 64.1 to 72.9 seconds
Hydromorphone HCl 0.5 mg 11/01/23 16:19 11/02/23 21:08
Hydromorphone 0.5 Mg/0.5 Ml Syringe IV 11/15/23 16:18 0.5 mg
Q3HPRN PRN Administration
severe pain
Hydromorphone HCl 0.25 mg 11/01/23 16:19
Hydromorphone 0.25 Mg/0.5 Ml Syringe IV 11/15/23 16:18
Q3HPRN PRN
moderate pain
Heparin Sodium 25,000 units in 250 mls @ 0 mls/hr 11/01/23 07:00 11/02/23 04:14
Heparin 31366 Units/250 Ml IV 250 mls
PER PROTOCOL AYSE Administration
Protocol
Per Protocol
Sodium Chloride 1,000 mls @ 75 mls/hr 11/01/23 13:21 11/02/23 16:39
Nss IV 1,000 mls
.[id number] AYSE Administration
Nicotine 21 mg 11/02/23 08:00 11/02/23 08:18
Nicotine 21 Mg Patch TRANSDERM 11/30/23 07:59 21 mg
DAILY AYSE Administration
Polyethylene Glycol 17 grams 11/01/23 13:21 11/02/23 08:18
Polyethylene Glycol Powder 17 Grams Packet PO 11/29/23 13:20 17 grams
DAILY AYSE Administration
Pramipexole Dihydrochloride 0.75 mg 11/01/23 22:00 11/02/23 21:10
Pramipexole 0.25 Mg Tablet PO 11/29/23 21:59 0.75 mg
HS AYSE Administration
Sodium Chloride 0 flush 11/01/23 07:00
Sodium Chloride 0.9% (Flush) Syringe IV 11/29/23 06:59
PER PROTOCOL AYSE
Valacyclovir HCl 1,000 mg 11/01/23 16:00 11/02/23 21:10
Valacyclovir Hcl 500 Mg Tablet PO 11/11/23 15:59 1,000 mg
TID AYSE Administration
Review of Systems
-
History Source: Patient and Records
All Other Systems: Reviewed and Negative
Constitutional: Denies Fever, Weight Loss or No Appetite
EENT: Reports No Symptoms
Respiratory: Reports Wheezing
Cardiac: Reports No Symptoms
GI: Reports No Symptoms
Breast: Reports No Symptoms
: Reports No Symptoms
Musculoskeletal: Reports No Symptoms
Skin: Reports No Symptoms
Neuro: Reports No Symptoms
Endocrine: Reports No Symptoms
Hematologic/Lymphatic: Reports No Symptoms
Allergy / Immunology: Reports No Symptoms
Psych: Reports No Symptoms
Physical Exam
-
General: Well Developed, Well Nourished and No Apparent Distress
HEENT: Moist Mucous Membranes; Negative Jaundice
Cardiology: Normal Sinus Rhythm, S1 and S2
Pulmonary: Wheezes; Negative Rales or Rhonchi
GI: Soft and Normal Bowel Sounds
Genito-Urinary: Negative Costovertebral Angle Tenderness
Musculoskeletal: No Clubbing, No Cyanosis and No Edema
Extremities: No C/C/E
Neurology: Non Focal
Skin: Warm and Dry
Hematologic / Lymphatic: No Lymphadenopathy and No Petechiae
Psych: Calm and Intact Judgement/Insight
Labs
Lab Results
WBC 5.7 10^3/uL (4.8-10.8) 11/02/23 15:
RBC 4.24 10^6/uL (4.20-5.40) 11/02/23 15:
Hgb 13.0 g/dL (12.0-16.0) 11/02/23 15:
Hct 39.5 % (37.0-47.0) 11/02/23 15:
MCV 93.2 fL (81.0-99.0) 11/02/23 15:26
MCH 30.7 pg (27.0-31.0) 11/02/23 15:26
MCHC 32.9 g/dL (33.0-37.0) L 11/02/23 15:26
RDW 12.9 % (11.5-14.5) 11/02/23 15:26
Plt Count 146 10^3/uL (130-400) 11/02/23 15:26
MPV 10.0 fL (7.4-10.4) 11/02/23 15:26
Abs Immat Gran (auto) 0.0 10^3/uL (0-0.05) 11/01/23 05:45
Absolute Neuts (auto) 6.6 10^3/uL (1.4-6.5) H 11/01/23 05:45
Absolute Lymphs (auto) 1.8 10^3/uL (1.2-3.4) 11/01/23 05:45
Absolute Monos (auto) 0.7 10^3/uL (0.1-0.6) H 11/01/23 05:45
Absolute Eos (auto) 0.1 10^3/uL (0-0.7) 11/01/23 05:45
Absolute Basos (auto) 0.1 10^3/uL (0-0.2) 11/01/23 05:45
Immature Gran % 0.3 % (0-0.5) 11/01/23 05:45
Neutrophils % 71.4 % (42.2-75.2) 11/01/23 05:45
Lymphocytes % 18.9 % (20.5-51.1) L 11/01/23 05:45
Monocytes % 7.7 % (1.7-9.3) 11/01/23 05:45
Eosinophils % 1.1 % (0-6) 11/01/23 05:45
Basophils % 0.6 % (0-2) 11/01/23 05:45
Creatinine 0.7 mg/dL (0.6-1.0) 11/02/23 15:26
Vital Signs
Vital Signs
Temp Pulse Resp BP Pulse Ox
98.1 F 85 14 95/69 95
11/02/23 20:45 11/02/23 09:45 11/02/23 09:45 11/02/23 08:00 11/02/23 09:58
[2023-11-02 23:20] LABS: APTT > 200 Sec (23.4-35.0)
[2023-11-03] VITALS (11 sets, daily range): BP systolic 102–147; BP diastolic 70–97; BMI 31.8
--- NOTE | 2023-11-03 02:47 | PTCARENOTE ---
Heparin gtt held for 2 hours and restarted at 400 units less (1100 units) per protocol d/t PTT >200. SITE INTERPRETER notified.
[2023-11-03] MEDS: HEPARIN 25000 UNITS/250 ML IV (03:11)
[2023-11-03] MEDS: DILAUDID 0.5 MG IV ×4 (03:23→21:06)
[2023-11-03] MEDS: NSS 1000 IV (05:14)
[2023-11-03 05:26] LABS: Hematocrit 34.8 % (37.0-47.0); Hemoglobin 11.9 g/dL (12.0-16.0); Mean Corp Hgb Conc. 34.2 g/dL (33.0-37.0); Mean Corpuscular Hgb 30.9 pg (27.0-31.0); Mean Corpuscular Volume 90.4 fL (81.0-99.0); Mean Platelet Volume 9.9 fL (7.4-10.4); Platelet Count 157 10^3/uL (130-400); Red Blood Cell Count 3.85 10^6/uL (4.20-5.40); Red Cell Dist. Width 12.8 % (11.5-14.5); White Blood Cell Count 5.1 10^3/uL (4.8-10.8)
[2023-11-03 05:59] LABS: Blood Urea Nitrogen 10 mg/dl (7-17); Carbon Dioxide 22 mmol/L (22-30); Chloride 109 mmol/L (98-107); Estimated Creatinine Clearance 107 ml/min; Glucose 88 mg/dl (70-99); Potassium 4.6 mmol/L (3.5-5.1); Sodium 138 mmol/L (135-145); eGFR > 60.00
--- NOTE | 2023-11-03 07:46 | PTCARENOTE ---
Cannot confirm accuracy of vital signs captured for nightshift from 00:00-06:00.
[2023-11-03 08:35] LABS: APTT 83.8 Sec (23.4-35.0)
--- NOTE | 2023-11-03 08:40 | W.PN.HOSP.TC ---
Addendum entered and electronically signed by Crow Gerber MD 11/03/23 16:57:
Discussed with Pulm and recommended repeat US RLE and not ready for discharge from their standpoint today.
Original Note:
Today's Communication/Plan
-
Continue heparin drip.
Assessment / Plan
Assessment / Plan
Physical exam:
General: Acutely ill
HEENT: Normocephalic, Atraumatic and Moist Mucous Membranes
Respiratory: Clear to Auscultation; Negative Wheezes, Rales or Rhonchi
Cardiac: Regular Rhythm and S1/S2
GI: Soft, Nontender and Nondistended
Musculoskeletal: No Clubbing, No Cyanosis and No Edema
Neuro: Awake, Alert and Oriented
Psych: Calm
Echocardiogram:
Normal biventricular size and systolic function without regional wall motion
abnormality. Estimated LVEF 55-60%.
Mild concentric left ventricular hypertrophy.
Normal PASP.
No prior study available for comparison.
A/P:
CTA chest: Examination is positive for pulmonary embolism.
There is saddle embolus in the posterior aspect of the bifurcation of the main pulmonary artery, with emboli extending into the main pulmonary arteries bilaterally.
On the right, there is involvement of the proximal aspect of the right upper lobe pulmonary artery. There is also involvement of the superior aspect of the proximal interlobar right pulmonary artery. There does not appear to be significant emboli
within the visualized right middle and lower lobe pulmonary arteries.
On the left, there is involvement of the left upper lobe pulmonary artery and extending into segmental branches. There is also involvement of the lingula and of the left lower lobe segmental branches, although appears to relatively spare the
subsegmental branches inferiorly.
There are no findings to suggest significant right heart strain with no significant deviation of the interventricular septum. The RV/LV ratio is less than 1.
RLE U/S: Occlusive thrombus involving the right popliteal and peroneal veins.
Acute saddle and B/L PEs, acute RLE U/S:
-Patient with factor V Leiden mutation. History of pulmonary embolism in the past but was taken off anticoagulation.
-no evidence of RV strain, troponin negative, patient hemodynamically stable
-Checked echocardiogram and results as above
-Ultrasound of the opposite leg and no DVT in the left
-IVFs, can stop
-Consult pulmonary appreciated
-Continue heparin drip
-Consulted hematology given recurrence of events and input appreciated.
-Continue cardiac monitoring
-Hemoglobin 11.9 today
-international project manager to check on Eliquis cost
-Plan to discharge once cleared by pulmonary and hematology. Possible either later today or tomorrow.
Obesity due to excess calories:
-Encourage weight loss
-Affects all aspects of care
FULL/Heparin gtt
Anticipated Discharge: Today
Subjective/Interval History
-
Date of Service: November 03, 2023
Patient complains of mild worsening of right lower edema extremity, still complain of some chest discomfort and shortness of breath intermittent in nature.
Objective Data
-
Labs:
Laboratory Results
11/02/23 11/03/23 11/03/23
22:49 05:12 08:12
WBC 5.1
Hgb 11.9 L
Hct 34.8 L
Plt Count 157
APTT > 200 H* 83.8 H
Sodium 138
Potassium 4.6
Chloride 109 H
Carbon Dioxide 22
BUN 10
Creatinine 0.7
Glucose 88
Calcium 9.0
Vital Signs:
Vital Signs
Temp Pulse Resp BP Pulse Ox
97.8 F 81 14 147/87 95
11/03/23 03:42 11/03/23 06:00 11/03/23 06:00 11/03/23 06:00 11/03/23 06:00
I&O
11/02/23 11/03/23 11/04/23
06:59 06:59 06:59
Intake Total 240 / 240 3000 / 3000
Balance 240 / 240 3000 / 3000
[2023-11-03] MEDS: MIRALAX 17 GRAMS PO (09:35)
[2023-11-03] MEDS: VALTREX 1000 MG PO ×3 (09:35→21:07)
[2023-11-03] MEDS: NICODERM TRANSDERMAL 21 MG TRANSDERM (09:36)
--- NOTE | 2023-11-03 11:32 | W.PN.ONC ---
Today's Communication / Plan
-
continue heparin gtt
transition to Eliquis when able
Will need to continue Eliquis 5mg bid (after 1 week loading dose) for at least 6 months
OOB, ambulation
t/c reducing to 2.5mg bid in the future
She'll need hematology f/u in ~6 months
Impression
Impression
Hx PE provoked by OCP's + tobacco use
Now with unprovoked RLE DVT/PE
Tobacco use disorder, still smoking
Hx PUD
Plan
Plan
Continue heparin gtt
When medically stable for d/c from ICU, may transition to Eliquis 10 BID x 7 days followed by 5 BID x 6 months.
Needs life-long anticoagulation but anticipate transitioning to 2.5 BID after 6 months course.
Monitor hemoglobin and iron studies Q6m as outpt due to history of PUD.
Needs mammogram, Senior Marketing Engineer follow up.
Low threshold for colonoscopy if iron deficiency develops, otherwise may continue Cologard screening.
Thank you for consult, will follow along with you.
Subjective/Objective
Subjective/Objective
c/o RLE pain and swelling
Vital Signs:
Vital Signs
Temp Pulse Resp BP Pulse Ox
98.1 F 81 14 147/87 95
11/03/23 07:10 11/03/23 06:00 11/03/23 06:00 11/03/23 06:00 11/03/23 06:00
breathing comfortably, no conversational dyspnea
tender right calf swelling
Lab Results:
Laboratory Data
WBC 5.1 10^3/uL (4.8-10.8) 11/03/23 05:12
Hgb 11.9 g/dL (12.0-16.0) L 11/03/23 05:12
Plt Count 157 10^3/uL (130-400) 11/03/23 05:12
PT 14.1 Sec (11.4-14.6) 11/01/23 05:45
INR 1.10 11/01/23 05:45
APTT 83.8 Sec (23.4-35.0) H 11/03/23 08:12
eGFR > 60.00 11/03/23 05:12
--- NOTE | 2023-11-03 12:29 | W.PN.PUL3 ---
Today's Communication / Plan
-
Transition to Eliquis today
Re-check RLE US to re-assess RLE DVT
Case management consulted to assess for affordability of Eliquis -Eliquis is affordable with $10 monthly cost with coupon
Walking pulse oximetry prior to discharge
PT/OT consult for RLE given her stiffness remains an issue, continue with local pain control with lidocaine patch, warm compresses, and remain active with mild activity given how recent this DVT/PE is
Outpatient follow-up with us in the office
Assessment
-
Assessment:
Mrs Juany Rosales is a 52/W adm 10-31 with reported history of right lower extremity pain and dyspnea since day prior to admission. Both symptoms worse over time. Reportedly, she visited PCP for left-sided headache, she was empirically started
on Valtrex with improvement of symptoms. Of note, she has a history of factor V Leiden mutation and history of associated pulmonary embolism for which she was on anticoagulation in the past. First adm
Impression:
VTE:
Saddle PE
RLE calf DVT
Thrombophilia: FVL mutation
Tobacco dependence
Conditions REAL ESTATE REP:
Factor V Leiden mutation
FVL mutation diagnosed in screening test at age mid 30s after her paternal aunt had DVT and proved positive for FVLD
H/o PE for which she was on anticoagulation for 6 m in 2019 (no DVT)
2 cousins with FVL mutation
Smoker: 1 ppd since age 16
Obesity
Plan:
O2 protocol as needed with goal SpO2 >90-94%
Evaluate O2 needs PTD with home O2 assessment
Acapella valve
Aspiration precautions
CTA chest: saddle and bilateral PE. GGO at RUL anterior(*). Posterior dependent changes
TTE: Normal RV size and function; mild pulmonary hypertension with PASP 28 mmHg assuming an RAP of 8 mmHg
RLE doppler US: R pop and peroneal DVT
LLE Doppler negative for DVT
BNP low
D-dimer ^
Trop negative
EKG ST
COVID-19 antigen negative
Full PESI: class II, low risk, 1.7 to 3.5% thirty d mortality
Change heparin drip to NOAC (Eliquis) today with 10mg BID loading dose followed by 5mg BID
Outpatient follow-up with hematology
Given her worsening right calf swelling with pain, I will recheck RLE duplex ultrasound to rule out worsening DVT and assess for any propagation
Pain control --> will use lidocaine patch; PT/OT also ordered
Benefits and risks of thrombolytics therapy were reviewed with patient
Patient has mild tachycardia and borderline interim hypotension-currently risks of aggressive thrombolytic therapy outweigh [id number] notified of options, reasons for conservative standard of care therapy and is in agreement
s/p bedrest �24 hours
Given second VTE event, will need termite exterminator helper AC
Used to follow with Hem and Pulm at [facility] and post d/c after first PE event in 2019 (ASUNCION doppler negative for DVT), repeat CTA negative at 6 m gavin, apixaban AC then d/c
Agrees to pulm and local hematology follow up p d/c. [facility] information left in chart
Hematology is following along - recs appreciated
Never colonoscopy but negative cologuard 1 y ago
Negative mammogram mid 2022
Negative PAP 2 y ago
No wt loss, but chronic intermittent NS
Tobacco dependence and Smoking Cessation Counselling provided on 10-31: No current tobacco craving but realizes may eventually feel urge for tobacco as has happened before.
-Motivational interview to address importance of tobacco cessation, building up motivation to quit.
-Diagnosis of tobacco dependence, etiology, natural history and pathophysiology discussed in detail, all questions answered to satisfaction.
-Therapeutic options discussed, benefits and potential side effects of standard regimens discussed, all questions answered to satisfaction.
-NRT to complete total of 3-6 m of therapy. Agrees to start nicotine patch, will start at 21 mg qd for 1-2 m, then 14 mg qd for 1-2 m, then 7 mg qd for 1-2 m and stop (dosing and course to be modified based on response).
-Behavioral interventions in addition to NRT were thoroughly discussed.
-Total smoking cessation counsellin min.
DVT prophylaxis-on full anticoagulation
Early nutrition
Early mobilization
Encourage incentive spirometer
Outpatient pulmonary follow-up
Outpatient appropriate malignancy screening
Pulmonary will continue to follow along while she remains inpatient. I will arrange for outpatient follow-up s/p discharge.
Total time spent today was 35 minutes for this encounter. Time includes reviewing laboratory test/imaging results, reviewing pertinent medical records, obtaining and reviewing medical history, performing an appropriate exam, ordering medications,
tests and procedures. Time also includes documentation of this encounter, coordinating patient care and communicating with other healthcare professionals. Total time does not include separately billed tests performed on this date of service.
Subjective Data
-
Date of Service:
Date of Service: November 03, 2023
Chief Complaint: Pulmonary Follow Up and VTE Follow Up
Subjective:
Patient seen this morning. Complaining of right calf stiffness and pain, worsening compared to the last 1-2 days. Right calf is also much more swollen than she sometimes gets tingling in her right foot. Also her right toes feel slightly cooler to
touch compared to the left foot. Patient denies any worsening shortness of breath, chest pain, fevers or chills.
Review of Systems
General: Other (Negative unless mentioned above)
Objective Data
Data Reviewed
Vital Signs / I&O / Oxygen:
Vital Signs
Temp Pulse Resp BP Pulse Ox
98.2 F 98 21 134/86 95
11/03/23 11:40 11/03/23 12:00 11/03/23 12:00 11/03/23 12:00 11/03/23 09:43
Intake and Output
11/02/23 11/03/23 11/04/23
06:59 06:59 06:59
Intake Total 240 / 240 3000 / 3000
Balance 240 / 240 3000 / 3000
SaO2 95
Nasal Cannula flow liters per 2
minute
Physical Exam
General: Respiratory Distress (negative) and Comfortable
HEENT: Normocephalic and Anicteric
Cardiovascular: S1-S2 and Peripheral Edema (Trace RLE; no edema on left lower extremity)
Respiratory: Wheeze (negative), Crackles (bibasilar), Rhonchi (negative) and Non-Labored Respirations
GI: Soft, Non Distended and Non Tender
Neurology: AO x 3 and Tremors (negative)
Skin: Dry, Cyanosis (n) and Other (All extremities warm except for right lower extremity where toes are cool to touch)
Labs/Micro/Reports
Lab Data
11/03/23 05:12
11/03/23 05:12
Laboratory Results
11/02/23 11/02/23 11/03/23
15:26 22:49 08:12
APTT 47.4 H > 200 H* 83.8 H
--- NOTE | 2023-11-03 12:30 | PTCARENOTE ---
Assumed care of patient this morning. She reports pain to her RLE and she requested pain medication, see MAR. RLE does look slightly bigger than the LLE. Her pulses are intact. She does report occasional SOB and chest pain with exertion. Pt needed
2L of O2 during the night but switched to RA early this morning. Heparin gtt drip continued, she was educated on precautions and pt verbalized understanding. Assessment, care and VS as charted.
--- NOTE | 2023-11-03 13:28 | CM ---
CM following re: discharge planning.
Reviewed pt's chart, met with pt and pt's at bedside.
Requested Eliquis reyes check as follow: Eliquis 5 Mg BID for 30 days - $40.00 co-pay. $10.00 coupon with 30 days free coupon provided.
D/c plan: home with anticipated no needs. to transport at discharge.
CM will follow with discharge plan updates as needed.
[2023-11-03] MEDS: LIDOCAINE 4% PATCH 1 PATCH TOPICAL (13:29)
[2023-11-03] MEDS: ELIQUIS 10 MG PO ×2 (13:29→21:07)
[2023-11-03] MEDS: TYLENOL 650 MG PO (15:23)
[2023-11-03] MEDS: MIRAPEX 0.75 MG PO (21:07)
[2023-11-04] VITALS (12 sets, daily range): BP systolic 112–140; BP diastolic 83–97; PULSE 93–99; O2SAT 97; BMI 31.4
[2023-11-04] MEDS: DILAUDID 0.5 MG IV ×2 (03:45→09:10)
[2023-11-04] MEDS: ZOFRAN 4 MG IV ×2 (04:02→13:26)
[2023-11-04 04:43] LABS: Hematocrit 37.5 % (37.0-47.0); Hemoglobin 13.1 g/dL (12.0-16.0); Mean Corp Hgb Conc. 34.9 g/dL (33.0-37.0); Mean Corpuscular Volume 88.7 fL (81.0-99.0); Mean Platelet Volume 9.8 fL (7.4-10.4); Platelet Count 182 10^3/uL (130-400); Red Blood Cell Count 4.23 10^6/uL (4.20-5.40); Red Cell Dist. Width 12.6 % (11.5-14.5)
[2023-11-04] MEDS: ELIQUIS 10 MG PO (08:57)
[2023-11-04] MEDS: VALTREX 1000 MG PO ×2 (08:57→15:30)
[2023-11-04] MEDS: NICODERM TRANSDERMAL 21 MG TRANSDERM (08:57)
[2023-11-04] MEDS: MIRALAX 17 GRAMS PO (08:58)
[2023-11-04] MEDS: LIDOCAINE 4% PATCH 1 PATCH TOPICAL (08:58)
--- NOTE | 2023-11-04 09:20 | W.PN.HOSP.TC ---
Today's Communication/Plan
-
Discharge planning today.
Assessment / Plan
Assessment / Plan
Physical exam:
General: No acute distress
HEENT: Normocephalic, Atraumatic and Moist Mucous Membranes
Respiratory: Clear to Auscultation; Negative Wheezes, Rales or Rhonchi
Cardiac: Regular Rhythm and S1/S2
GI: Soft, Nontender and Nondistended
Musculoskeletal: No Clubbing, No Cyanosis. Right lower extremity edema is subsiding.
Neuro: Awake, Alert and Oriented
Psych: Calm
Echocardiogram:
Normal biventricular size and systolic function without regional wall motion
abnormality. Estimated LVEF 55-60%.
Mild concentric left ventricular hypertrophy.
Normal PASP.
No prior study available for comparison.
A/P:
CTA chest: Examination is positive for pulmonary embolism.
There is saddle embolus in the posterior aspect of the bifurcation of the main pulmonary artery, with emboli extending into the main pulmonary arteries bilaterally.
On the right, there is involvement of the proximal aspect of the right upper lobe pulmonary artery. There is also involvement of the superior aspect of the proximal interlobar right pulmonary artery. There does not appear to be significant emboli
within the visualized right middle and lower lobe pulmonary arteries.
On the left, there is involvement of the left upper lobe pulmonary artery and extending into segmental branches. There is also involvement of the lingula and of the left lower lobe segmental branches, although appears to relatively spare the
subsegmental branches inferiorly.
There are no findings to suggest significant right heart strain with no significant deviation of the interventricular septum. The RV/LV ratio is less than 1.
RLE U/S: Occlusive thrombus involving the right popliteal and peroneal veins.
Acute saddle and B/L PEs, acute RLE U/S:
-Patient with factor V Leiden mutation. History of pulmonary embolism in the past but was taken off anticoagulation.
-no evidence of RV strain, troponin negative, patient hemodynamically stable
-Checked echocardiogram and results as above
-Ultrasound of the opposite leg and no DVT in the left
-IVFs, can stop
-Consult pulmonary appreciated
-Change heparin drip to Eliquis last evening
-Consulted hematology given recurrence of events and input appreciated.
-Continue cardiac monitoring
-Hemoglobin 13.1 today
-post manager checked on Eliquis cost
-Pulm reordered US RLE-->results shows thrombosis improving and nonocclusive.
-PT OT worked with patient.
Headache:
Stat CT of the head in light of anticoagulants. CT came back unremarkable for any signs of bleeding.
Headache responded to pain medications and antiemetics.
Obesity due to excess calories:
-Encourage weight loss
-Affects all aspects of care
DVT prophylaxis Eliquis
CODE STATUS full code
Anticipated Discharge: Today
Subjective/Interval History
-
Date of Service: November 04, 2023
Patient right lower extremity improved today. She had some headache later.
Objective Data
-
Labs:
Laboratory Results
11/04/23
04:27
WBC 6.0
Hgb 13.1
Hct 37.5
Plt Count 182
Vital Signs:
Vital Signs
Temp Pulse Resp BP Pulse Ox
98 F 94 15 102/70 94
11/04/23 08:58 11/03/23 20:00 11/03/23 20:00 11/03/23 20:00 11/03/23 20:15
I&O
11/03/23 11/04/23 11/05/23
06:59 06:59 06:59
Intake Total 3000 / 3000 1110 / 1110
Balance 3000 / 3000 1110 / 1110
--- NOTE | 2023-11-04 11:44 | PTCARENOTE ---
Vitals from police shift commander pulled over, cannot verify accuracy.
[2023-11-04] MEDS: ULTRAM 50 MG PO (11:57)
[2023-11-04] MEDS: TYLENOL 650 MG PO (13:11)
--- NOTE | 2023-11-04 13:22 | W.PN.PUL3 ---
Today's Communication / Plan
-
Continue Eliquis
Case management consulted to assess for affordability of Eliquis -Eliquis is affordable with $10 monthly cost with coupon
Walking pulse oximetry prior to discharge
Outpatient PT recommended
Patient is being prepared for discharge home. I will arrange to see her in the office with me, with plans to repeat TTE in 4-6 weeks. Pulmonary service will now sign off. Please reconsult if there are any additional questions/concerns, or if
patient's respiratory status deteriorates.
Assessment
-
Assessment:
Mrs Juany Rosales is a 52/W adm 10-31 with reported history of right lower extremity pain and dyspnea since day prior to admission. Both symptoms worse over time. Reportedly, she visited PCP for left-sided headache, she was empirically started
on Valtrex with improvement of symptoms. Of note, she has a history of factor V Leiden mutation and history of associated pulmonary embolism for which she was on anticoagulation in the past. First adm
Impression:
VTE:
Saddle PE
RLE calf DVT
Thrombophilia: FVL mutation
Tobacco dependence
Headache
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
Factor V Leiden mutation
FVL mutation diagnosed in screening test at age mid 30s after her paternal aunt had DVT and proved positive for FVLD
H/o PE for which she was on anticoagulation for 6 m in 2019 (no DVT)
2 cousins with FVL mutation
Smoker: 1 ppd since age 16
Obesity
Plan:
Maintain SpO2 >90-94%
Evaluate O2 needs PTD with home O2 assessment
Acapella valve
Aspiration precautions
CTA chest: saddle and bilateral PE. GGO at RUL anterior(*). Posterior dependent changes
TTE: Normal RV size and function; mild pulmonary hypertension with PASP 28 mmHg assuming an RAP of 8 mmHg
RLE doppler US: R pop and peroneal DVT --> US repeated today given worsening RLE stiffness and this shows persistent thrombus in the right popliteal and peroneal but now popliteal thrombus is nonocclusive, which is slightly improved from prior when
it was occlussive
LLE Doppler negative for DVT
BNP low
D-dimer ^
Trop negative
EKG ST
COVID-19 antigen negative
Full PESI: class II, low risk, 1.7 to 3.5% thirty d mortality
Continue with Eliquis with 10mg BID loading dose followed by 5mg BID
Outpatient follow-up with hematology
Pain control --> will use lidocaine patch; PT/OT also ordered --> PT rec'd outpatient therapy; No OT needs recommended
Benefits and risks of thrombolytics therapy were reviewed with patient
Patient had mild tachycardia and borderline interim hypotension- risks of aggressive thrombolytic therapy outweighed benefits- patient was notified of options, reasons for conservative standard of care therapy and was in agreement
s/p bedrest �24 hours
Given second VTE event, will need detention AC
Used to follow with Hem and Pulm at [facility] and post d/c after first PE event in 2019 (ASUNCION doppler negative for DVT), repeat CTA negative at 6 m gavin, apixaban AC then d/c
Agrees to pulm and local hematology follow up p d/c. BCMA information left in chart
Hematology is following along - recs appreciated
Never colonoscopy but negative cologuard 1 y ago
Negative mammogram mid 2022
Negative PAP 2 y ago
No wt loss, but chronic intermittent NS
Tobacco dependence and Smoking Cessation Counselling provided on 10-31: No current tobacco craving but realizes may eventually feel urge for tobacco as has happened before.
-Motivational interview to address importance of tobacco cessation, building up motivation to quit.
-Diagnosis of tobacco dependence, etiology, natural history and pathophysiology discussed in detail, all questions answered to satisfaction.
-Therapeutic options discussed, benefits and potential side effects of standard regimens discussed, all questions answered to satisfaction.
-NRT to complete total of 3-6 m of therapy. Agrees to start nicotine patch, will start at 21 mg qd for 1-2 m, then 14 mg qd for 1-2 m, then 7 mg qd for 1-2 m and stop (dosing and course to be modified based on response).
-Behavioral interventions in addition to NRT were thoroughly discussed.
-Total smoking cessation counsellin min.
DVT prophylaxis-on full anticoagulation
Early nutrition
Early mobilization
Encourage incentive spirometer
Outpatient pulmonary follow-up
Outpatient appropriate malignancy screening
Patient is being prepared for discharge home. I will arrange to see her in the office with me, with plans to repeat TTE in 4-6 weeks. Pulmonary service will now sign off. Thank you for allowing us to be involved in the care of this patient.
Please reconsult if there are any additional questions/concerns, or if patient's respiratory status deteriorates.
Total time spent today was 25 minutes for this encounter. Time includes reviewing laboratory test/imaging results, reviewing pertinent medical records, obtaining and reviewing medical history, performing an appropriate exam, ordering medications,
tests and procedures. Time also includes documentation of this encounter, coordinating patient care and communicating with other healthcare professionals. Total time does not include separately billed tests performed on this date of service.
Subjective Data
-
Date of Service:
Date of Service: November 04, 2023
Chief Complaint: Pulmonary Follow Up and VTE Follow Up
Subjective:
Seen this morning. Repeat lower extremity ultrasound shows improved RLE clot burden with now nonocclusive thrombus in the right popliteal vein, with persistent occlusive thrombus in the right peroneal veins. She is able to ambulate around the room
but she does still have significant right calf discomfort. at bedside and answered all the questions.
Apparently earlier patient had a headache which worsened after getting tramadol which also led to nausea/vomiting. CT head obtained showing no acute intracranial abnormality.
Review of Systems
General: Other (Negative unless mentioned above)
Objective Data
Data Reviewed
Vital Signs / I&O / Oxygen:
Vital Signs
Temp Pulse Resp BP Pulse Ox
97.7 F 102 23 132/94 93
11/04/23 11:25 11/04/23 12:00 11/04/23 12:00 11/04/23 12:00 11/04/23 12:00
Intake and Output
11/03/23 11/04/23 11/05/23
06:59 06:59 06:59
Intake Total 3000 / 3000 1110 / 1110 240 / 240
Balance 3000 / 3000 1110 / 1110 240 / 240
SaO2 93
Nasal Cannula flow liters per 2
minute
Physical Exam
General: Respiratory Distress (negative) and Comfortable
HEENT: Normocephalic and Anicteric
Cardiovascular: S1-S2 and Peripheral Edema (Trace RLE; no edema on left lower extremity)
Respiratory: Wheeze (negative), Crackles (bibasilar), Rhonchi (negative) and Non-Labored Respirations
GI: Soft, Non Distended and Non Tender
Neurology: AO x 3 and Tremors (negative)
Skin: Dry, Cyanosis (n) and Other (All extremities warm except for right lower extremity where toes are cool to touch)
Labs/Micro/Reports
Lab Data
11/04/23 04:27
11/03/23 05:12
Laboratory Results
11/03/23
14:15
APTT Cancelled
--- NOTE | 2023-11-04 13:39 | PTCARENOTE ---
Pt complaining of '27/03' headache pain, unresolved but Ultram which was given at noon, asking for Tylenol now. Per pharmacy ok to give. Pt now nauseated, Dr. Gerber notified, orders for stat CT head. Stat dose Zofran ordered and given however pt now
vomiting large amounts white emesis with food pieces. Sent to CT on stretcher at this time.
--- NOTE | 2023-11-04 15:37 | W.DCSUMMARY ---
Discharge Summary
Discharge Data
Date of Admission: 11/01/23
Date of Discharge: 11/04/23
-
Pending Results: No
Hospital Course
Patient 52 years old female with history of factor V Leiden and prior history of PE/DVT in the setting of smoking and OCPs, depression, restless leg syndrome, peptic ulcer disease, presented to the hospital with right lower extremity pain and
shortness of breath and found to have right lower extremity DVT and saddle PE. Patient was started on heparin drip. Subsequently heparin drip was able to be switched to oral anticoagulants, Eliquis. Pulmonary and hematology were consulted.
Echocardiogram did not reveal any right ventricular strain. Ultrasound of the left lower extremity no DVT. Patient pain in the right lower extremity got worse and more swollen so she had another ultrasound and also had physical therapy. Repeated
ultrasound shows improvement of her thrombosis in the right lower extremity. After therapy she started to improve in the right lower extremity as well. She also had some headache and had a CT scan of the head that shows no evidence of bleeding and
her headache improved subsequently. She remained off oxygenation and she improved overall. She has remained also hemodynamically stable. Pulmonary cleared her for discharge today. She is going to be discharged in stable condition today.
Discharge duration: 35 minutes
Discharge Plan
-
Patient Disposition: Home (Routine Discharge)
Discharge Diagnosis/Procedures: Saddle pulmonary embolism. History of factor V Leiden deficiency. Headache.
Diet: Regular
Activity: As tolerated
Driving Restrictions: As prior to admission
Blood Work: Please PCP to order CBC, BMP within 1 week
Referrals:
Primary care, provider [Other] (See less than 1 week)
Rosemarie Aguirre MD [Active] - in two to four weeks
Francisco Carreon MD [Active] - in two to four weeks (New patient: PE, DVT, heavy smoker. On AC. W/u for COPD)
Prescriptions:
New
Eliquis DVT-PE Treat 30D Start 5 mg (74 tabs) tablets,dose pack
See Rx Instructions .ROUTE .COMPLEX Qty: 74 0RF
Rx Instructions:
orally per package directions
polyethylene glycol 3350 [Miralax] 17 gram/dose powder
4 g PO DAILY Qty: 119 0RF
oxycodone 5 mg capsule
5 mg PO Q8H PRN (Reason: moderate to severe pain) Qty: 14 0RF
Continued
valacyclovir [Valtrex] 1 gram Tablet
1,000 mg PO TID
Tylenol PM Extra Strength 25-500 mg Tablet
2 tab PO HS
pramipexole 0.75 mg Tablet
0.75 mg PO HS
melatonin 10 mg Tablet
10 mg PO HS
Discharge Orders:
Discharge Patient (As Directed); Ordered 11/04/23
Ordered By: Crow Gerber
Discharge Date and Time
Discharge Date/Time: 11/04/23 17:27
Print Language: KYRGYZ
--- NOTE | 2023-11-04 17:01 | CM ---
Patient with Dx Acute saddle pulmonary embolism. Room air. PT recommends outpatient therapy. OT; no needs.
Spoke with patient who was preparing for d/c. The patient says she feels ready to go home today. She was given an Eliquis copay card by the prior CM. Offered to request script from MD for outpatient therapy - patient declined. Her was at
the bedside for transport home today.
No CM d/c needs.
Plan home today.
== END 2023-11-04 17:27 | disposition home or self-care (01) | DRG 176 ==
LOC: IMU 11:11
PROVIDERS: Emergency Medicine; ADMITTING PHYSICIAN Internal Medicine; ATTENDING PHYSICIAN Hospitalist; CONSULT PHYSICIAN Internal Medicine Hematology & Oncology; CONSULT PHYSICIAN Internal Medicine Pulmonary Disease; EMERGENCY PHYSICIAN Emergency Medicine
DX: I26.92 Saddle embolus of pulmonary artery without acute cor pulmonale (principal); D68.51 Activated protein C resistance; I82.451 Acute embolism and thrombosis of right peroneal vein; I82.431 Acute embolism and thrombosis of right popliteal vein; E66.09 Other obesity due to excess calories; F17.210 Nicotine dependence, cigarettes, uncomplicated; G25.81 Restless legs syndrome; F32.A Depression, unspecified; R51.9 Headache, unspecified; Z11.52 Encounter for screening for COVID-19; Z79.899 Other long term (current) drug therapy; Z68.31 Body mass index [BMI] 31.0-31.9, adult; Z86.711 Personal history of pulmonary embolism; Z87.11 Personal history of peptic ulcer disease
CPT/HCPCS: 70450; 71275; 80048; 80053; 83880; 84484; 85025; 85027; 85379; 85610; 85730; 87811; 93005; 93306; 93971; 96374; 96375; 97116; 97162; 97166; 99291; Q9967